=== PATIENT | female | born 1985 | race Caucasian/White ===

== ENCOUNTER 2016-04-01 16:23 | Emergency (ER) | payer SELFPAY ==
[2016-04-01] MEDS ORDERED: DIPH/PERTUSS(ACELL)/TETANUS VAC/PF 0.5 ML SYR (>=10YO) IM ONE (16:35)
[2016-04-01] MEDS ORDERED: OXYCODONE-ACETAMINOPHEN 5-325 MG TABLET PO ONE (16:36)
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
[2016-04-01] MEDS ORDERED: HYDROCODONE/ACETAMINOPHEN 5-325 MG 6 TAB/DSPK PO PRN (18:31)
[2016-04-01 19:07] VITALS: BP 132/80
== END 2016-04-01 19:06 | disposition home or self-care (01) ==
LOC: EEVIPCON 16:23 → ER 16:23
DX: S01.01XA Laceration without foreign body of scalp, initial encounter (principal); S20.212A Contusion of left front wall of thorax, initial encounter; S00.83XA Contusion of other part of head, initial encounter; R07.81 Pleurodynia; Z23 Encounter for immunization; Y04.2XXA Assault by strike against or bumped into by another person, initial encounter; Y92.009 Unspecified place in unspecified non-institutional (private) residence as the place of occurrence of the external cause; Z88.0 Allergy status to penicillin; Z87.442 Personal history of urinary calculi; Z90.49 Acquired absence of other specified parts of digestive tract
CPT/HCPCS: 70450; 70486; 72125; 90471; 90715; 99284

== ENCOUNTER 2016-09-08 18:02 | Emergency (ER) | payer SELFPAY ==
[2016-09-08] MEDS ORDERED: NORMAL SALINE 1000 ML 1,000 ML IV PRN (19:40)
[2016-09-08] MEDS ORDERED: KETOROLAC TROMETHAMINE INJ/PF 30 MG/1 ML SDV IV ONE (19:40)
[2016-09-08] MEDS ORDERED: ONDANSETRON HCL INJ/PF 4 MG/2 ML SDV IV ONE (19:40)
--- NOTE | 2016-09-08 19:41 | ER Document Report ---
ED Medical Screen (RME) - General Chief Complaint: Flank Pain Stated Complaint: RIGHT FLANK PAIN Time Seen by Provider: 09/08/16 19:40 Mode of Arrival: Ambulatory Information source: Patient TRAVEL OUTSIDE OF THE [place] IN LAST 30 DAYS: No - HPI Patient complains to provider of: Right flank pain Onset: This afternoon Notes: 09/08/16 19:41 Is a 30-year-old female with a history of multiple previous kidney stone, requiring stent placement in 2004, other than that she has been able to pass most of them on their own, presenting with right flank pain that started around 230 this afternoon, she denies dysuria or hematuria, no fever or chills, she reports nausea but no vomiting - Related Data Allergies/Adverse Reactions: penicillin V [Penicillin V] Allergy (Verified 01/01/16 08:38) Past Medical History Renal/ Medical History: Reports: Hx Kidney Stones. Denies: Hx Peritoneal Dialysis Psychiatric Medical History: Reports: Hx Depression Past Surgical History: Reports: Hx Cholecystectomy - Immunizations Hx Diphtheria, Pertussis, Tetanus Vaccination: Yes Physical Exam - Vital signs Vitals: Temp Pulse Resp BP Pulse Ox 98.1 F 82 16 126/83 H 98 09/08/16 18:17 09/08/16 18:17 09/08/16 18:17 09/08/16 18:17 09/08/16 18:17 Course - Vital Signs Vital signs: Temp Pulse Resp BP Pulse Ox 98.1 F 82 16 126/83 H 98 09/08/16 18:17 09/08/16 18:17 09/08/16 18:17 09/08/16 18:17 09/08/16 18:17
[2016-09-08 20:05] LABS: APPEARANCE,URINE SLIGHTLY-CLOUDY; BILIRUBIN,URINE NEGATIVE (NEGATIVE); GLUCOSE, URINE NEGATIVE (NEGATIVE); KETONES,URINE TRACE mg/dL (NEGATIVE); LEUKOCYTE ESTERASE,URINE NEGATIVE (NEGATIVE); NITRITE,URINE NEGATIVE (NEGATIVE); PROTEIN,URINE NEGATIVE (NEGATIVE); UROBILINOGEN,URINE NEGATIVE mg/dL (<2.0)
[2016-09-08 21:02] LABS: ABSOLUTE EOSINOPHILS # (AUTO) 0.1 10^3/uL (0.0-0.6); ABSOLUTE MONOCYTES (AUTO) 0.5 10^3/uL (0.1-1.4); ABSOLUTE NEUT (AUTO) 3.8 10^3/uL (1.7-8.2); BASOPHILS % (AUTO) 0.7 % (0-2); EOSINOPHILS % (AUTO) 0.8 % (0-6); HEMATOCRIT 39.4 % (36.0-47.0); HGB HCT DIFFERENCE -0.4; LYMPHOCYTES % (AUTO) 40.7 % (13-45); MEAN CORPUSCULAR HEMOGLOBIN 31.5 pg (27.0-33.4); MEAN CORPUSCULAR VOLUME 96 fl (80-97); MONOCYTES % (AUTO) 6.1 % (3-13); RED BLOOD COUNT 4.12 10^6/uL (3.72-5.28); RED CELL DISTRIBUTION WIDTH 14.1 % (11.5-14.0); SEGMENTED NEUTROPHILS % (AUTO) 51.7 % (42-78); WHITE BLOOD COUNT 7.4 10^3/uL (4.0-10.5)
[2016-09-08] MEDS ORDERED: LIDOCAINE 5% (700 MG) TRANSDERMAL ADH..PATCH TP ONE (21:15)
--- NOTE | 2016-09-08 21:20 | ER Document Report ---
ED General - General Chief Complaint: Flank Pain Stated Complaint: RIGHT FLANK PAIN Time Seen by Provider: 09/08/16 19:40 Mode of Arrival: Ambulatory Notes: Patient is a 30-year-old female with past medical history of recurrent nephrolithiases who presents with 12 hours of a constant, stabbing, aching pain to the right flank. States this feels somewhat similar when she had kidney stones in the past. She has not tried anything to improve her pain has not noted that anything seems to worsen the pain. Denies any associated hematuria, dysuria, focal abdominal pain, vaginal bleeding or discharge. She has not seen her primary care doctor regarding today's concerns. She denies any associated constitutional symptoms, vomiting or diarrhea. TRAVEL OUTSIDE OF THE [place] IN LAST 30 DAYS: No - Related Data Allergies/Adverse Reactions: penicillin V [Penicillin V] Allergy (Verified 01/01/16 08:38) Past Medical History - General Information source: Patient - Social History Smoking Status: Current Every Day Smoker Frequency of alcohol use: None Drug Abuse: None Lives with: Spouse/Significant other Family History: Reviewed & Not Pertinent Renal/ Medical History: Reports: Hx Kidney Stones. Denies: Hx Peritoneal Dialysis Psychiatric Medical History: Reports: Hx Depression Past Surgical History: Reports: Hx Cholecystectomy - Immunizations Hx Diphtheria, Pertussis, Tetanus Vaccination: Yes Review of Systems - Review of Systems Notes: Constitutional: Negative for fever. HENT: Negative for sore throat. Eyes: Negative for visual changes. Cardiovascular: Negative for chest pain. Respiratory: Negative for shortness of breath. Gastrointestinal: Negative for abdominal pain, vomiting or diarrhea. Genitourinary: Negative for dysuria. Musculoskeletal: Negative for back pain. Positive for right flank pain Skin: Negative for rash. Neurological: Negative for headaches, weakness or numbness. 10 point ROS negative except as marked above and in HPI. Physical Exam - Vital signs Vitals: Temp Pulse Resp BP Pulse Ox 98.1 F 82 16 126/83 H 98 09/08/16 18:17 09/08/16 18:17 09/08/16 18:17 09/08/16 18:17 09/08/16 18:17 Interpretation: Normal Notes: PHYSICAL EXAMINATION: GENERAL: Well-appearing, well-nourished and in no acute distress. HEAD: Atraumatic, normocephalic. EYES: Pupils equal round and reactive to light, extraocular movements intact, sclera anicteric, conjunctiva are normal. ENT: nares patent, oropharynx clear without exudates. Moist mucous membranes. NECK: Normal range of motion, supple without lymphadenopathy LUNGS: Breath sounds clear to auscultation bilaterally and equal. No wheezes rales or rhonchi. HEART: Regular rate and rhythm without murmurs ABDOMEN: Soft, nontender, normoactive bowel sounds. No guarding, no rebound. No masses appreciated. Mild right CVA tenderness to palpation EXTREMITIES: Normal range of motion, no pitting or edema. No cyanosis. NEUROLOGICAL: No focal neurological deficits. Moves all extremities spontaneously and on command. PSYCH: Normal mood, normal affect. SKIN: Warm, Dry, normal turgor, no rashes or lesions noted. Course - Re-evaluation Re-evalutation: 09/08/16 21:15 Patient presents with gradual onset right flank pain but is overall extremely well in appearance, no acute distress. States it feels like prior kidney stones although her overall clinical appearance is not suggestive of this diagnosis. Patient has had recurrent CT scans in the past and I do not believe that she requires an additional scan at this time to better clarify the diagnosis as there is no hydronephrosis on bedside ultrasound, no hematuria or evidence of infection on urinalysis. Abdominal exam is otherwise completely benign without any focal tenderness beyond the right flank tenderness on palpation. I do not suspect an acute pulmonary embolus as patient denies any dyspnea, pleuritic pain, she is PERC criteria negative. The exact cause of patient's pain at this time is unclear but could still be related to a possible acute kidney stone despite absence of hematuria or obvious hydronephrosis on bedside ultrasound. I have recommended ongoing ibuprofen, Tylenol, and have encouraged patient to follow-up with her primary care physician. At this time based on exam and history do not suspect acute biliary pathology, pancreatitis, bowel obstruction, mesenteric ischemia, acute appendicitis, ovarian torsion, tubo-ovarian abscess, or acute pyelonephritis. At this time will discharge with return precautions and follow-up recommendations. Verbal discharge instructions given a the bedside and opportunity for questions given. Medication warnings reviewed. Patient is in agreement with this plan and has verbalized understanding of return precautions and the need for primary care follow-up in the next 24-72 hours. - Vital Signs Vital signs: Temp Pulse Resp BP Pulse Ox 98.2 F 57 L 14 118/70 99 09/08/16 20:55 09/08/16 20:55 09/08/16 20:55 09/08/16 20:55 09/08/16 20:55 - Laboratory Result Diagrams: 09/08/16 20:15 09/08/16 20:15 Laboratory results interpreted by me: 09/08/16 09/08/16 09/08/16 18:15 20:15 20:15 RDW 14.1 H BUN 22 H AST 56 H Urine Ketones TRACE H Urine Ascorbic Acid 40 H Discharge - Discharge Clinical Impression: Right flank pain Condition: Good Disposition: HOME, SELF-CARE Additional Instructions: The exact cause of your flank pain today is unclear but does not immediately appear to be related to a kidney stone or a kidney infection. The remainder of your lab work is normal. Please follow-up with your primary care doctor in the next several days. For your pain: Take ibuprofen 600 mg and acetaminophen 1000 mg every 6 hours together as needed for pain. If this does not control your pain you may take 15 mg of oral morphine every 4 hours as needed. Please be very careful about using the oral morphine and only use this for severe pain. Return if you have worsening of your pain, persistent vomiting, pass out, or have any other symptoms that are worrisome to you. Prescriptions: Morphine Sulfate [Morphine Ir 15 mg Tablet] 15 mg PO Q4HP PRN #6 tablet PRN Reason: Forms: Return to Work
[2016-09-08 21:25] LABS: ALANINE AMINOTRANSFERASE 37 U/L (9-52); ALBUMIN 4.2 g/dL (3.5-5.0); ALKALINE PHOSPHATASE 78 U/L (38-126); ANION GAP 10 (5-19); ASPARTATE AMINO TRANSFERASE 56 U/L (14-36); BILIRUBIN,DIRECT 0.3 mg/dL (0.0-0.4); BILIRUBIN,TOTAL 0.5 mg/dL (0.2-1.3); BLOOD UREA NITROGEN 22 mg/dL (7-20); CALCIUM 9.1 mg/dL (8.4-10.2); CARBON DIOXIDE 28 mmol/L (22-30); CHLORIDE 103 mmol/L (98-107); CREATININE RESULT 0.87 mg/dL (0.52-1.25); GLUCOSE 99 mg/dL (75-110); LIPASE 130.9 U/L (23-300); POTASSIUM 3.6 mmol/L (3.6-5.0); SODIUM 140.6 mmol/L (137-145); TOTAL PROTEIN 7.5 g/dL (6.3-8.2)
[2016-09-08 21:27] VITALS: BP 118/70
== END 2016-09-08 21:35 | disposition home or self-care (01) ==
LOC: ER 18:02
DX: R10.9 Unspecified abdominal pain (principal); Z87.442 Personal history of urinary calculi; F17.200 Nicotine dependence, unspecified, uncomplicated; Z88.0 Allergy status to penicillin; Z90.49 Acquired absence of other specified parts of digestive tract
CPT/HCPCS: 99284; 96361; 96374; 96375; 36415; 87086; 83690; 84703; 85025; 87088; 80053; 81001; 87186; J1885; J2405; J7030

== ENCOUNTER 2016-12-17 17:19 | Emergency (ER) | payer SELFPAY ==
[2016-12-17 17:41] VITALS: BP 114/80
== END 2016-12-18 00:35 | disposition left against medical advice (07) ==
LOC: EEVIPCON 17:19 → ER 17:19
DX: Z53.21 Procedure and treatment not carried out due to patient leaving prior to being seen by health care provider (principal)

== ENCOUNTER 2016-12-23 08:06 | Emergency (ER) | payer SELFPAY ==
--- NOTE | 2016-12-23 10:13 | ER Document Report ---
ED General - General Chief Complaint: Vaginal Bleeding Stated Complaint: VAGINAL BLEEDING Time Seen by Provider: 12/23/16 09:44 Mode of Arrival: Ambulatory Information source: Patient Notes: 31-year-old female who had a Mirena and for 5 years presents with complaints of vaginal bleeding cramping. Patient is concerned of miscarriage denies any fevers or chills denies any large clots patient has had a miscarriage in the past and has received RhoGam in the past TRAVEL OUTSIDE OF THE [place] IN LAST 30 DAYS: No - HPI Onset: Yesterday Onset/Duration: Sudden Quality of pain: Cramping Severity: Mild Pain Level: 1 Associated symptoms: Other Exacerbated by: Denies Relieved by: Denies Similar symptoms previously: Yes Recently seen / treated by doctor: No - Related Data Allergies/Adverse Reactions: penicillin V [Penicillin V] Allergy (Verified 12/23/16 10:40) Past Medical History - Social History Smoking Status: Current Every Day Smoker Cigarette use (# per day): Yes Chew tobacco use (# tins/day): No Smoking Education Provided: No Family History: Reviewed & Not Pertinent Patient has suicidal ideation: No Renal/ Medical History: Reports: Hx Kidney Stones. Denies: Hx Peritoneal Dialysis Psychiatric Medical History: Reports: Hx Depression Past Surgical History: Reports: Hx Cholecystectomy, Hx Kidney (Renal Surgery) - stent placed - Immunizations Hx Diphtheria, Pertussis, Tetanus Vaccination: Yes Review of Systems - Review of Systems Notes: REVIEW OF SYSTEMS: CONSTITUTIONAL : Denies fever, chills, or sweats. Denies recent illness. EENT: Denies eye, ear, throat, or mouth pain or symptoms. Denies nasal or sinus congestion or discharge. Denies throat, tongue, or mouth swelling or difficulty swallowing. CARDIOVASCULAR: Denies chest pain. Denies palpitations or racing or irregular heart beat. Denies ankle edema. RESPIRATORY: Denies cough, cold, or chest congestion. Denies shortness of breath, difficulty breathing, or wheezing. GASTROINTESTINAL: Denies abdominal pain or distention. Denies nausea, vomiting , or diarrhea. Denies blood in vomitus, stools, or per rectum. Denies black, tarry stools. Denies constipation. GENITOURINARY: Denies difficulty urinating, painful urination, burning, frequency, blood in urine, or discharge. FEMALE GENITOURINARY: Admits to vaginal bleeding MUSCULOSKELETAL: Denies back or neck pain or stiffness. Denies joint pain or swelling. SKIN: Denies rash, lesions or sores. HEMATOLOGIC : Denies easy bruising or bleeding. LYMPHATIC: Denies swollen, enlarged glands. NEUROLOGICAL: Denies confusion or altered mental status. Denies passing out or loss of consciousness. Denies dizziness or lightheadedness. Denies headache. Denies weakness or paralysis or loss of use of either side. Denies problems with gait or speech. Denies sensory loss, numbness, or tingling. Denies seizures. PSYCHIATRIC: Denies anxiety or stress. Denies depression, suicidal ideation, or homicidal ideation. ALL OTHER SYSTEMS REVIEWED AND NEGATIVE. PHYSICAL EXAMINATION: GENERAL: Well-appearing, well-nourished and in no acute distress. HEAD: Atraumatic, normocephalic. EYES: Pupils equal round and reactive to light, extraocular movements intact, conjunctiva are normal. ENT: Nares patent, oropharynx clear without exudates. Moist mucous membranes. NECK: Normal range of motion, supple without lymphadenopathy LUNGS: Breath sounds clear to auscultation bilaterally and equal. No wheezes rales or rhonchi. HEART: Regular rate and rhythm without murmurs ABDOMEN: Soft, nontender, nondistended abdomen. No guarding, no rebound. No masses appreciated. Female : deferred Musculoskeletal: Normal range of motion, no pitting or edema. No cyanosis. NEUROLOGICAL: Cranial nerves grossly intact. Normal speech, normal gait. Normal sensory, motor exams PSYCH: Normal mood, normal affect. SKIN: Warm, Dry, normal turgor, no rashes or lesions noted. Dictation was performed using [employer] voice recognition software Physical Exam - Vital signs Vitals: Temp Pulse Resp BP Pulse Ox 98.6 F 67 16 110/70 99 12/23/16 08:35 12/23/16 08:35 12/23/16 08:35 12/23/16 08:35 12/23/16 08:35 Course - Re-evaluation Re-evalutation: 12/23/16 10:13 Lab work pending at this time, concerns for miscarriage noted and will check with serum hCG otherwise this may be a. Given that her Mirena has lasted greater than 5 years 12/23/16 11:22 Patient's hCG was negative lab work otherwise looks well. I believe she is having her menses Urine culture has been ordered given moderate white blood cells with no urinary symptoms After performing a Medical Screening Examination, I estimate there is LOW risk for ACUTE APPENDICITIS, BOWEL OBSTRUCTION, ACUTE CHOLECYSTITIS, PERFORATED DIVERTICULITIS, INCARCERATED HERNIA, PANCREATITIS, PELVIC INFLAMMATORY DISEASE, PERFORATED ULCER, ECTOPIC , or TUBO-OVARIAN ABSCESS, thus I consider the discharge disposition reasonable. Also, there is no evidence or peritonitis , sepsis, or toxicity. I have reevaluated this patient multiple times and no significant life threatening changes are noted. The patient and I have discussed the diagnosis and risks, and we agree with discharging home with close follow-up with the understanding that symptoms and presentations can change. We also discussed returning to the Emergency Department immediately if new or worsening symptoms occur. We have discussed the symptoms which are most concerning (e.g., bloody stool, fever, changing or worsening pain, vomiting) that necessitate immediate return. - Vital Signs Vital signs: Temp Pulse Resp BP Pulse Ox 98.6 F 67 16 110/70 99 12/23/16 08:35 12/23/16 08:35 12/23/16 08:35 12/23/16 08:35 12/23/16 08:35 - Laboratory Result Diagrams: 12/23/16 10:10 12/23/16 10:10 Laboratory results interpreted by me: 12/23/16 12/23/16 10:10 10:10 Chloride 109 H Urine Blood SMALL H Urine Urobilinogen 2.0 H Ur Leukocyte Esterase MODERATE H Discharge - Discharge Clinical Impression: Pelvic pain, Vaginal bleeding Condition: Stable Disposition: HOME, SELF-CARE Instructions: Pelvic Pain ([facility]) Prescriptions: Hydrocodone/Acetaminophen [[place] 5-325 mg Tablet] 1 tab PO Q6 #10 tablet Referrals: [facility] [Provider Group] - Follow up tomorrow
[2016-12-23 10:30] LABS: ABSOLUTE EOSINOPHILS # (AUTO) 0.2 10^3/uL (0.0-0.6); ABSOLUTE LYMPHOCYTES (AUTO) 1.9 10^3/uL (0.5-4.7); ABSOLUTE MONOCYTES (AUTO) 0.4 10^3/uL (0.1-1.4); ABSOLUTE NEUT (AUTO) 2.6 10^3/uL (1.7-8.2); BASOPHILS % (AUTO) 0.5 % (0-2); EOSINOPHILS % (AUTO) 3.4 % (0-6); HEMATOCRIT 36.2 % (36.0-47.0); HEMOGLOBIN 12.6 g/dL (12.0-15.5); HGB HCT DIFFERENCE 1.6; LYMPHOCYTES % (AUTO) 37.3 % (13-45); MEAN CORPUSCULAR HEMOGLOBIN 32.6 pg (27.0-33.4); MEAN CORPUSCULAR HGB CONC 34.8 g/dL (32.0-36.0); MEAN CORPUSCULAR VOLUME 94 fl (80-97); MONOCYTES % (AUTO) 8.2 % (3-13); RED BLOOD COUNT 3.86 10^6/uL (3.72-5.28); RED CELL DISTRIBUTION WIDTH 12.9 % (11.5-14.0); SEGMENTED NEUTROPHILS % (AUTO) 50.6 % (42-78); WHITE BLOOD COUNT 5.1 10^3/uL (4.0-10.5)
[2016-12-23 10:52] LABS: ALANINE AMINOTRANSFERASE 25 U/L (9-52); ALBUMIN 3.9 g/dL (3.5-5.0); ALKALINE PHOSPHATASE 96 U/L (38-126); ANION GAP 9 (5-19); ASPARTATE AMINO TRANSFERASE 19 U/L (14-36); BILIRUBIN,DIRECT 0.2 mg/dL (0.0-0.4); BILIRUBIN,TOTAL 0.2 mg/dL (0.2-1.3); BLOOD UREA NITROGEN 12 mg/dL (7-20); CALCIUM 9.7 mg/dL (8.4-10.2); CARBON DIOXIDE 27 mmol/L (22-30); CHLORIDE 109 mmol/L (98-107); CREATININE RESULT 0.72 mg/dL (0.52-1.25); GLUCOSE 92 mg/dL (75-110); POTASSIUM 3.9 mmol/L (3.6-5.0); SODIUM 144.5 mmol/L (137-145); TOTAL PROTEIN 6.5 g/dL (6.3-8.2)
[2016-12-23 11:00] LABS: AMORPHOUS SEDIMENT,URINE TRACE /HPF; APPEARANCE,URINE CLOUDY; BILIRUBIN,URINE NEGATIVE (NEGATIVE); GLUCOSE, URINE NEGATIVE (NEGATIVE); KETONES,URINE NEGATIVE (NEGATIVE); LEUKOCYTE ESTERASE,URINE MODERATE (NEGATIVE); NITRITE,URINE NEGATIVE (NEGATIVE); PROTEIN,URINE NEGATIVE (NEGATIVE); URINE SPECIFIC GRAVITY 1.027
[2016-12-23] MEDS ORDERED: HYDROCODONE/ACETAMINOPHEN 5-325 MG TABLET PO ONE (11:06)
[2016-12-23 12:01] VITALS: BP 127/73
== END 2016-12-23 11:35 | disposition home or self-care (01) ==
LOC: ER 08:06
DX: N93.9 Abnormal uterine and vaginal bleeding, unspecified (principal); R10.2 Pelvic and perineal pain; F17.210 Nicotine dependence, cigarettes, uncomplicated; Z87.59 Personal history of other complications of pregnancy, childbirth and the puerperium; Z88.0 Allergy status to penicillin; Z97.5 Presence of (intrauterine) contraceptive device
CPT/HCPCS: 36415; 80053; 81001; 84702; 85025; 87086; 99284

== ENCOUNTER 2017-02-04 14:49 | Emergency (ER) | payer SELFPAY ==
[2017-02-04 14:54] VITALS: BP 124/73
--- NOTE | 2017-02-04 16:20 | ER Document Report ---
ED GI/ - General Chief Complaint: Flank Pain Stated Complaint: RIGHT SIDE PAIN Time Seen by Provider: 02/04/17 16:19 TRAVEL OUTSIDE OF THE [place] IN LAST 30 DAYS: No - Related Data Allergies/Adverse Reactions: penicillin V [Penicillin V] Allergy (Verified 02/04/17 14:53) Past Medical History - Social History Family History: Reviewed & Not Pertinent Renal/ Medical History: Reports: Hx Kidney Stones. Denies: Hx Peritoneal Dialysis Psychiatric Medical History: Reports: Hx Depression Past Surgical History: Reports: Hx Cholecystectomy, Hx Kidney (Renal Surgery) - stent placed - Immunizations Hx Diphtheria, Pertussis, Tetanus Vaccination: Yes Physical Exam - Vital signs Vitals: Temp Pulse Resp BP Pulse Ox 98.5 F 71 14 124/73 97 02/04/17 14:53 02/04/17 14:53 02/04/17 14:53 02/04/17 14:53 02/04/17 14:53 Course - Vital Signs Vital signs: Temp Pulse Resp BP Pulse Ox 98.5 F 71 14 124/73 97 02/04/17 14:53 02/04/17 14:53 02/04/17 14:53 02/04/17 14:53 02/04/17 14:53
--- NOTE | 2017-02-04 16:25 | ER Document Report ---
HPI - HPI Onset: This afternoon Onset/Duration: Sudden Quality of pain: Throbbing Pain Level: 4 Context: Change to below 31-year-old female developed right lumbar low back pain while walking on the treadmill at the gym. No specific injury which she has had this pain before. There is no radiation or radiculopathy. No saddle anesthesia. No fever. No IV drug use. States it is a kidney stone. She has been seen in the emergency department with CT scans showed renal stones but no ureteral stones or hydronephrosis. The throbbing pain is worse when she moves she is unable to bend forward due to the pain and lateral side bends make it hurt. No urinary frequency dysuria or urgency. No hematuria. No vaginal discharge. Associated Symptoms: None Exacerbated by: Movement Relieved by: Denies Similar symptoms previously: Yes Recently seen / treated by doctor: No - ROS ROS below otherwise negative: Yes Systems Reviewed and Negative: Yes All other systems reviewed and negative - REPRODUCTIVE Reproductive: DENIES: : Past Medical History - General Information source: Patient - Social History Smoking Status: Current Every Day Smoker Frequency of alcohol use: None Drug Abuse: Marijuana Lives with: Family Family History: Reviewed & Not Pertinent Renal/ Medical History: Reports: Hx Kidney Stones. Denies: Hx Peritoneal Dialysis Psychiatric Medical History: Reports: Hx Depression Past Surgical History: Reports: Hx Cholecystectomy, Hx Kidney (Renal Surgery) - stent placed - Immunizations Hx Diphtheria, Pertussis, Tetanus Vaccination: Yes Vertical Provider Document - CONSTITUTIONAL Agree With Documented VS: Yes Exam Limitations: No Limitations General Appearance: No Apparent Distress Notes: Curled in a ball laying on the bed covered with blankets on her left side. - INFECTION CONTROL TRAVEL OUTSIDE OF THE [place] IN LAST 30 DAYS: No - HEENT HEENT: Normocephalic - NECK Neck: Supple - RESPIRATORY Respiratory: Breath Sounds Normal, No Respiratory Distress O2 Sat by Pulse Oximetry: 97 - CARDIOVASCULAR Cardiovascular: Regular Rate, Regular Rhythm - GI/ABDOMEN Gastrointestinal: Abdomen Soft, Abdomen Non-Tender - BACK Back: Normal Inspection Notes: tender L4 laterally right paraspinal muscle - MUSCULOSKELETAL/EXTREMETIES Musculoskeletal/Extremeties: MAEW, FROM, Tender - see above - NEURO Level of Consciousness: Awake, Alert, Appropriate Motor/Sensory: No Motor Deficit, No Sensory Deficit Deep Tendon Reflexes: 2+ - Bilateral ankle and patella Course - Re-evaluation Re-evalutation: 02/04/17 17:15 Urine is negative I will treat for musculoskeletal back pain. - Vital Signs Vital signs: Temp Pulse Resp BP Pulse Ox 98.5 F 71 14 124/73 97 02/04/17 14:53 02/04/17 14:53 02/04/17 14:53 02/04/17 14:53 02/04/17 14:53 Discharge - Discharge Clinical Impression: right low lumbar back pain Condition: Good Disposition: HOME, SELF-CARE Instructions: Acetaminophen, Anti-Inflammatory Medication ([facility]), Chiropractor, Muscle Relaxers ([facility]), Warm Packs ([facility]) Additional Instructions: warm compress see chiropractor, may help with the lumbar back pain to er if worse Prescriptions: Ibuprofen [Motrin 600 mg Tablet] 600 mg PO Q8HP PRN #30 tablet PRN Reason: Cyclobenzaprine HCl [Flexeril 10 Mg Tablet] 10 mg PO TIDP PRN #20 tablet PRN Reason: Referrals: ROBERT VALVERDE DC [CHIROPRACTOR] - Follow up as needed
[2017-02-04] MEDS ORDERED: IBUPROFEN 600 MG TABLET PO ONE (16:31)
[2017-02-04] MEDS ORDERED: ACETAMINOPHEN 325 MG TABLET PO ONE (16:31)
[2017-02-04 16:39] LABS: APPEARANCE,URINE SLIGHTLY-CLOUDY; BILIRUBIN,URINE NEGATIVE (NEGATIVE); GLUCOSE, URINE NEGATIVE (NEGATIVE); KETONES,URINE NEGATIVE (NEGATIVE); LEUKOCYTE ESTERASE,URINE NEGATIVE (NEGATIVE); NITRITE,URINE NEGATIVE (NEGATIVE); PROTEIN,URINE NEGATIVE (NEGATIVE); URINE SPECIFIC GRAVITY 1.016; UROBILINOGEN,URINE NEGATIVE mg/dL (<2.0)
== END 2017-02-04 18:00 | disposition home or self-care (01) ==
LOC: ER 14:49
DX: M54.5 Low back pain (principal); F17.200 Nicotine dependence, unspecified, uncomplicated
CPT/HCPCS: 81001; 81025; 87086; 87088; 99284

== ENCOUNTER 2017-05-23 14:38 | Emergency (ER) | payer SELFPAY ==
--- NOTE | 2017-05-23 16:10 | ER Document Report ---
ED Medical Screen (RME) - General Chief Complaint: Flu Symptoms Stated Complaint: FLU SYMPTOMS Time Seen by Provider: 05/23/17 16:08 Mode of Arrival: Ambulatory Information source: Patient Notes: This is a 31-year-old female with a history of kidney stones who presents to the emergency room with body aches, weakness, nonproductive cough, low-grade fevers for the past 2 days. Medications: None Allergies: Penicillin Immunizations: No flu vaccine Surgeries: Cholecystectomy, kidney stent TRAVEL OUTSIDE OF THE [place] IN LAST 30 DAYS: No - HPI Onset: Yesterday Onset/Duration: Gradual Quality of pain: Dull Severity: Moderate Pain Level: 2 Associated Symptoms: Cough (nonproductive), Fever, Nausea Exacerbated by: Denies Relieved by: Denies Similar symptoms previously: No Recently seen / treated by doctor: No - Related Data Smoking: Non-smoker Frequency of alcohol use: None Drug Abuse: None Allergies/Adverse Reactions: penicillin V [Penicillin V] Allergy (Verified 05/23/17 14:40) Past Medical History - General Information source: Patient - Social History Cigarette use (# per day): No Chew tobacco use (# tins/day): No Frequency of alcohol use: Occasional Drug Abuse: Marijuana Lives with: Family Family history: None - Medical History Medical History: Negative Renal/ Medical History: Reports: Hx Kidney Stones. Denies: Hx Peritoneal Dialysis Psychiatric Medical History: Reports: Hx Depression Past Surgical History: Reports: Hx Cholecystectomy, Hx Kidney (Renal Surgery) - stent placed - Immunizations Hx Diphtheria, Pertussis, Tetanus Vaccination: Yes Review of Systems - Review of Systems Constitutional: Chills, Fever EENT: No symptoms reported Cardiovascular: No symptoms reported Respiratory: See HPI Gastrointestinal: See HPI Genitourinary: No symptoms reported Female Genitourinary: No symptoms reported Musculoskeletal: No symptoms reported Skin: No symptoms reported Neurological/Psychological: No symptoms reported Physical Exam - Vital signs Vitals: Temp Pulse Resp BP Pulse Ox 98.6 F 67 16 121/82 98 05/23/17 15:02 05/23/17 15:02 05/23/17 15:02 05/23/17 15:02 05/23/17 15:02 Notes: Physical exam: GENERAL: A 1-year-old female, alert and oriented 3, no acute distress HEAD: Atraumatic, normocephalic. EYES: Pupils equal round and reactive to light, extraocular movements intact, sclera anicteric, conjunctiva are normal. ENT: TMs normal, nares patent, oropharynx mildly erythematous. Moist mucous membranes. NECK: Normal range of motion, supple without obvious mass or JVD. LUNGS: Breath sounds clear to auscultation bilaterally and equal. No wheezes rales or rhonchi. HEART: Regular rate and rhythm without murmurs, rubs or gallops. ABDOMEN: Soft, normoactive bowel sounds. No tenderness to palpation. No guarding, no rebound. No masses appreciated. EXTREMITIES: Normal range of motion, no pitting or edema. No clubbing or cyanosis. NEUROLOGICAL: Cranial nerves II through XII grossly intact. Normal speech, moving all extremities. PSYCH: Normal mood, normal affect. SKIN: Warm, Dry, normal turgor, no rashes or lesions noted. Course - Vital Signs Vital signs: Temp Pulse Resp BP Pulse Ox 98.5 F 70 18 120/88 H 99 05/23/17 18:08 05/23/17 18:08 05/23/17 18:08 05/23/17 18:08 05/23/17 18:08 - Diagnostic Test Radiology reviewed: Image reviewed, Reports reviewed - Chest x-ray showed no infiltrates Doctor's Discharge - Discharge Clinical Impression: Influenza-like illness Condition: Stable Disposition: HOME, SELF-CARE Additional Instructions: Your rapid strep test was negative today. Your chest x-ray was clear. You were initiated treatment for influenza. Rest, drink plenty of fluids, Tylenol and ibuprofen as needed. Return to the emergency room for worsening cough, shortness of breath or any concerns or getting worse. Prescriptions: Oseltamivir Phosphate [Tamiflu 75 mg Capsule] 75 mg PO BID #10 capsule Forms: Return to Work
--- NOTE | 2017-05-23 16:31 | RADIOLOGY REPORT (SQ) ---
EXAM DESCRIPTION: CHEST PA/LAT COMPLETED DATE/TIME: 05/23/2017 4:24 pm REASON FOR STUDY: cough COMPARISON: December 2015 EXAM PARAMETERS: NUMBER OF VIEWS: two views TECHNIQUE: Digital Frontal and Lateral radiographic views of the chest acquired. RADIATION DOSE: NA LIMITATIONS: none FINDINGS: LUNGS AND PLEURA: No opacities, masses or pneumothorax. No pleural effusion. MEDIASTINUM AND HILAR STRUCTURES: No masses or contour abnormalities. HEART AND VASCULAR STRUCTURES: Heart normal size. No evidence for failure. BONES: No acute findings. HARDWARE: None in the chest. OTHER: No other significant finding. IMPRESSION: NO SIGNIFICANT RADIOGRAPHIC FINDING IN THE CHEST. TECHNICAL DOCUMENTATION: JOB ID: [id number] [employer]- All Rights Reserved Reading location - IP/workstation name: [facility]
[2017-05-23] MEDS ORDERED: OSELTAMIVIR PHOSPHATE 75 MG CAPSULE PO ONE (17:57)
[2017-05-23 18:10] VITALS: BP 120/88
== END 2017-05-23 18:09 | disposition home or self-care (01) ==
LOC: ER 14:38
DX: J11.1 Influenza due to unidentified influenza virus with other respiratory manifestations (principal); M79.1 Myalgia; R53.1 Weakness; R50.9 Fever, unspecified; Z87.442 Personal history of urinary calculi; Z88.0 Allergy status to penicillin; Z90.49 Acquired absence of other specified parts of digestive tract
CPT/HCPCS: 99284; 87070; 87880; 71046; J3490

== ENCOUNTER 2017-06-24 16:19 | Emergency (ER) | payer SELFPAY ==
--- NOTE | 2017-06-24 17:51 | ER Document Report ---
HPI - HPI Pain Level: 1 Notes: Patient is a 31-year-old female no significant past medical history who presents to the ED requesting a work note she had to miss work today. Patient states that earlier this afternoon she had episodes of nausea and vomiting which have since resolved. Patient states that her work requires her to get a work note and wanted her to come the emergency department for it. She has no other concerns or complaints at this time. She has been able to eat and drink without difficulty since then. She is urinating normally and having normal bowel movements. Patient denies any possibility of at this time and does not want any tests performed. No other concerns or complaints. Denies any headache, fever, URI, sore throat, chest pain, palpitations, syncope, cough , shortness of breath, wheeze, dyspnea, current abdominal pain, current nausea/ vomiting/diarrhea, urinary retention, dysuria, hematuria, back pain, loss of control of bowel or bladder, numbness/tingling, saddle anesthesia, muscle paralysis/weakness, or rash. - ROS Systems Reviewed and Negative: Yes All other systems reviewed and negative - REPRODUCTIVE Reproductive: DENIES: : Past Medical History - Social History Smoking Status: Never Smoker Family History: Reviewed & Not Pertinent Renal/ Medical History: Reports: Hx Kidney Stones. Denies: Hx Peritoneal Dialysis Psychiatric Medical History: Reports: Hx Depression Past Surgical History: Reports: Hx Cholecystectomy, Hx Kidney (Renal Surgery) - stent placed - Immunizations Hx Diphtheria, Pertussis, Tetanus Vaccination: Yes Vertical Provider Document - CONSTITUTIONAL Agree With Documented VS: Yes Notes: PHYSICAL EXAMINATION: GENERAL: Well-appearing, well-nourished and in no acute distress. LUNGS: Breath sounds clear to auscultation bilaterally and equal. No wheezes rales or rhonchi. HEART: Regular rate and rhythm without murmurs, rubs, gallops. ABDOMEN: Soft, nontender, nondistended abdomen. No guarding, no rebound. No masses appreciated. Normal bowel sounds present. No CVA tenderness bilaterally. Extremities: No cyanosis, clubbing, or edema b/l. Peripheral pulses 2+. Capillary refill less than 3 seconds. NEUROLOGICAL: Normal speech, normal gait. Normal sensory, motor exams PSYCH: Normal mood, normal affect. SKIN: Warm, Dry, normal turgor, no rashes or lesions noted. - INFECTION CONTROL TRAVEL OUTSIDE OF THE [place] IN LAST 30 DAYS: No Course - Re-evaluation Re-evalutation: 06/24/17 18:53 Patient is an afebrile, well-hydrated, 31-year-old female who presents to the ED with resolved nausea/vomiting (work note visit), and worried well visit. Vitals are acceptable. PE is otherwise unremarkable. Patient's abdomen was soft and nontender. Patient declined any lab testing today. Low suspicion for any acute abdomen at this time based on patient's presentation and physical exam. Patient is tolerating p.o. without any difficulties. Advised recheck with PCM in 3-5 days. Return to the ED with any worsening/concerning symptoms otherwise as reviewed discharge. Work note was provided. Patient is in agreement. - Vital Signs Vital signs: Temp Pulse Resp BP Pulse Ox 98.9 F 81 14 147/95 H 97 06/24/17 16:22 06/24/17 16:22 06/24/17 16:22 06/24/17 16:22 06/24/17 16:22 Discharge - Discharge Clinical Impression: Worried well Condition: Stable Disposition: HOME, SELF-CARE Additional Instructions: Maintain adequate fluid and food intake [place] diet ([employer] Bananas, rice, apples, toast, etc Zofran as needed tylenol if needed Monitor for any worsening symptoms Make sure you are staying hydrated enough to urinate and have normal BM's Recheck with your PCM in 3-5 days Consider consult with Gastroenterology for ongoing/worsening symptoms Return to the ED with any worsening symptoms and/or development of fever, headache, chest pain, palpitations, syncope, shortness of breath, trouble breathing, abdominal pain, n/v/d, blood in stool/urine, weakness, or other worsening symptoms that are concerning to you. Forms: Elevated Blood Pressure, Return to Work Referrals: ALEX PETERSON MD [ACTIVE STAFF] - Follow up as needed
[2017-06-24 18:34] VITALS: BP 136/98
== END 2017-06-24 18:37 | disposition home or self-care (01) ==
LOC: ER 16:19
DX: Z71.1 Person with feared health complaint in whom no diagnosis is made (principal); R11.2 Nausea with vomiting, unspecified
CPT/HCPCS: 99283

== ENCOUNTER 2017-10-25 18:42 | Emergency (ER) | payer SELFPAY ==
[2017-10-25 18:46] VITALS: BP 121/87
--- NOTE | 2017-10-25 19:25 | ER Document Report ---
ED General - General Chief Complaint: Headache Stated Complaint: HEAD INJURY Time Seen by Provider: 10/25/17 19:02 Notes: 32-year-old female patient presents 24 hours post falling forward. Hit the upper lip area. Did not lose consciousness. Did not have any other injuries. Feels dazed and confused today. Had some nausea but this has since resolved. Does have a headache but not severe. Denies any weakness on upper lower extremities. Denies any slurred speech. Denies any blurred vision or double vision. TRAVEL OUTSIDE OF THE [place] IN LAST 30 DAYS: No - HPI Onset: Yesterday Onset/Duration: Sudden Quality of pain: Achy Severity: Mild - Related Data Allergies/Adverse Reactions: penicillin V [Penicillin V] Allergy (Verified 10/25/17 18:43) Past Medical History - General Information source: Patient - Social History Smoking Status: Former Smoker Chew tobacco use (# tins/day): No Frequency of alcohol use: Heavy Drug Abuse: None Lives with: Alone Family History: Reviewed & Not Pertinent Patient has suicidal ideation: No Patient has homicidal ideation: No Renal/ Medical History: Reports: Hx Kidney Stones. Denies: Hx Peritoneal Dialysis Psychiatric Medical History: Reports: Hx Depression Past Surgical History: Reports: Hx Cholecystectomy, Hx Kidney (Renal Surgery) - stent placed - Immunizations Hx Diphtheria, Pertussis, Tetanus Vaccination: Yes Review of Systems - Review of Systems Constitutional: denies: Fever, Malaise, Weakness EENT: denies: Eye pain, Blurred vision, Double vision, Difficulty swallowing, Throat swelling Cardiovascular: Lightheaded. denies: Chest pain, Palpitations, Heart racing, Syncope, Dizziness Respiratory: denies: Cough, Hurts to breathe, Short of breath, Wheezing Gastrointestinal: Nausea. denies: Abdominal pain, Diarrhea, Vomiting Musculoskeletal: denies: Back pain, Joint pain, Muscle pain, Neck pain Neurological/Psychological: Headaches. denies: Confusion, Sensory change, Weakness, Paralysis, Lost consciousness, Numbness Physical Exam - Vital signs Vitals: Temp Pulse Resp BP Pulse Ox 99.1 F 63 18 121/87 H 98 10/25/17 18:45 10/25/17 18:45 10/25/17 18:45 10/25/17 18:45 10/25/17 18:45 Interpretation: Normal - General General appearance: Appears well, Alert - HEENT Head: Normocephalic, Atraumatic Eyes: Normal Pupils: PERRL Fundascopic: Normal Ears: Normal Tympanic membrane: Normal. No: Hemotympanum Mouth/Lips: Normal Mucous membranes: Normal Pharynx: Normal Neck: Normal, Supple - Respiratory Respiratory status: No respiratory distress Chest status: Nontender Breath sounds: Normal Chest palpation: Normal - Cardiovascular Rhythm: Regular Heart sounds: Normal auscultation Murmur: No - Abdominal Inspection: Normal Distension: No distension Bowel sounds: Normal Tenderness: Nontender Organomegaly: No organomegaly - Back Back: Normal, Nontender - Extremities General upper extremity: Normal inspection, Nontender, Normal color, Normal ROM , Normal temperature General lower extremity: Normal inspection, Nontender, Normal color, Normal ROM , Normal temperature, Normal weight bearing. No: Rosita's sign - Neurological Neuro grossly intact: Yes Cognition: Normal Orientation: AAOx4 Jerry Coma Scale Eye Opening: Spontaneous Jerry Coma Scale Verbal: Oriented [place] Coma Scale Motor: Obeys Commands [place] Coma Scale Total: 15 Speech: Normal Cranial nerves: Normal Cerebellar coordination: Normal Motor strength normal: LUE, RUE, LLE, RLE Additional motor exam normals: Equal medical assistant cardiology. No: Pronator drift Sensory: Normal - Psychological Associated symptoms: Normal affect, Normal mood - Skin Skin Temperature: Warm Skin Moisture: Dry Skin Color: Normal Course - Re-evaluation Re-evalutation: 10/25/17 19:27 Long discussion had regarding closed head injury. At this time I did not feel the patient needs a CT scan of her head. Explained to her that she has no significant warning signs with regards to closed head injuries and this is been almost 24 hours since the injury. Advised her that if she develops any worsening headache, neurological symptoms, uncontrolled vomiting or other concerns to please return. - Vital Signs Vital signs: Temp Pulse Resp BP Pulse Ox 99.1 F 63 18 121/87 H 98 10/25/17 18:45 10/25/17 18:45 10/25/17 18:45 10/25/17 18:45 10/25/17 18:45 Discharge - Discharge Clinical Impression: Closed head injury with concussion Qualifiers: Encounter type: initial encounter Loss of consciousness presence/duration: without LOC Qualified Code(s): S06.0X0A - Concussion without loss of consciousness, initial encounter Condition: Good Disposition: HOME, SELF-CARE Instructions: Head Injury Precautions ([facility]), Post-Concussion Syndrome ([facility]) Forms: Return to Work
== END 2017-10-25 19:25 | disposition home or self-care (01) ==
LOC: ER 18:42
DX: S06.0X0A Concussion without loss of consciousness, initial encounter (principal); W19.XXXA Unspecified fall, initial encounter; W22.03XA Walked into furniture, initial encounter; Y93.89 Activity, other specified; Y92.009 Unspecified place in unspecified non-institutional (private) residence as the place of occurrence of the external cause; Z87.891 Personal history of nicotine dependence; Z88.0 Allergy status to penicillin; R42 Dizziness and giddiness; R41.0 Disorientation, unspecified; R11.0 Nausea
CPT/HCPCS: 99284

== ENCOUNTER 2017-11-13 23:05 | Emergency (ER) | payer SELFPAY ==
--- NOTE | 2017-11-14 01:44 | ER Document Report ---
ED Headache - General Chief Complaint: Headache Stated Complaint: HEADACHE Time Seen by Provider: 11/14/17 01:04 Notes: Patient is a 32 year old female without chronic medical problems who presents with intermittent headache, dizziness and lightheadedness. She states that the symptoms have been intermittent since she fell and struck her face earlier this month after she which she was seen in the emergency department. She states that overall she has been doing quite well but she overexerted herself in the gym 2 days ago and was therefore unable to go to work yesterday. She states that today she feels fine with the exception of a mild, throbbing, bitemporal headache which is similar to the headache that has has been present intermittently since she fell and hit her face. She states that her work requires a work note which is her primary reason for visiting the emergency department today. She denies any focal weakness, numbness, vomiting, difficulty ambulating or confusion. TRAVEL OUTSIDE OF THE [place] IN LAST 30 DAYS: No - Related Data Allergies/Adverse Reactions: penicillin V [Penicillin V] Allergy (Verified 10/25/17 18:43) Past Medical History - General Information source: Patient - Social History Smoking Status: Current Some Day Smoker Chew tobacco use (# tins/day): No Frequency of alcohol use: None Drug Abuse: None Family History: Reviewed & Not Pertinent Patient has suicidal ideation: No Patient has homicidal ideation: No Renal/ Medical History: Reports: Hx Kidney Stones. Denies: Hx Peritoneal Dialysis Psychiatric Medical History: Reports: Hx Depression Past Surgical History: Reports: Hx Cholecystectomy, Hx Kidney (Renal Surgery) - stent placed - Immunizations Hx Diphtheria, Pertussis, Tetanus Vaccination: Yes Review of Systems - Review of Systems Notes: Constitutional: Negative for fever. HENT: Negative for sore throat. Eyes: Negative for visual changes. Cardiovascular: Negative for chest pain. Respiratory: Negative for shortness of breath. Gastrointestinal: Negative for abdominal pain, vomiting or diarrhea. Genitourinary: Negative for dysuria. Musculoskeletal: Negative for back pain. Skin: Negative for rash. Neurological: Positive for headaches 10 point ROS negative except as marked above and in HPI. Physical Exam - Vital signs Vitals: Temp Pulse Resp BP Pulse Ox 98.7 F 79 16 122/85 98 11/13/17 23:05 11/13/17 23:05 11/13/17 23:05 11/13/17 23:05 11/13/17 23:05 Interpretation: Normal Notes: PHYSICAL EXAMINATION: GENERAL: Well-appearing, well-nourished and in no acute distress. HEAD: Atraumatic, normocephalic. EYES: Pupils equal round and reactive to light, extraocular movements intact, sclera anicteric, conjunctiva are normal. ENT: nares patent, oropharynx clear without exudates. Moist mucous membranes. NECK: Normal range of motion, supple without lymphadenopathy LUNGS: Breath sounds clear to auscultation bilaterally and equal. No wheezes rales or rhonchi. HEART: Regular rate and rhythm without murmurs ABDOMEN: Soft, nontender, normoactive bowel sounds. No guarding, no rebound. No masses appreciated. EXTREMITIES: Normal range of motion, no pitting or edema. No cyanosis. NEUROLOGICAL: Face symmetric. Tongue protrudes midline. Extraocular motions intact. Pupils are 2 mm and equally reactive. Normal speech, normal gait. 5 out of 5 strength in both the distal and proximal upper and lower extremities bilaterally. Sensation is grossly intact throughout. Finger to nose testing normal. Pronator drift normal. PSYCH: Normal mood, normal affect. SKIN: Warm, Dry, normal turgor, no rashes or lesions noted. Course - Re-evaluation Re-evalutation: 11/14/17 01:41 Patient presents with intermittent headache, dizziness, occasional lightheadedness after striking her head approximately 3 weeks ago. She states that otherwise she had been doing quite well although she overexerted herself at the gym yesterday and then was unable to go to work due to these symptoms. She states that her work requires a work note and that is primarily the reason she is here in the emergency department. In regards to her current headache: Headache was not maximal in onset, patient has no focal neurologic deficits, no nuchal rigidity, vital signs within normal limits, no papilledema, and patient is overall well in appearance. Based on clinical history and examination I do not suspect an acute subarachnoid hemorrhage, dural venous sinus thrombosis, acute meningitis, or intercranial mass. Given my low clinical suspicion for any acute life-threatening etiology, I do not feel advanced neuro imaging or laboratory testing is indicated at this time. Patient is [place] head CT criteria negative initial physician was correct and not imaging the patient's head. The patient likewise agrees stating that the only reason she is really here is for a work note. At this time will discharge with return precautions and follow-up recommendations. Verbal discharge instructions given a the bedside and opportunity for questions given. Medication warnings reviewed. Patient is in agreement with this plan and has verbalized understanding of return precautions and the need for primary care follow-up in the next 24-72 hours. - Vital Signs Vital signs: Temp Pulse Resp BP Pulse Ox 98.5 F 82 20 118/70 99 11/14/17 02:11 11/14/17 02:11 11/14/17 02:11 11/14/17 02:11 11/14/17 02:11 Discharge - Discharge Clinical Impression: Concussion Qualifiers: Encounter type: initial encounter Loss of consciousness presence/duration: without LOC Qualified Code(s): S06.0X0A - Concussion without loss of consciousness, initial encounter Headache Qualifiers: Headache type: unspecified Headache chronicity pattern: unspecified pattern Intractability: not intractable Qualified Code(s): R51 - Headache Condition: Good Disposition: HOME, SELF-CARE Additional Instructions: You have likely sustained a contusion (bruise) to your head. Symptoms to expect from a concussion include nausea, mild to moderate headache, difficulty concentrating or sleeping, and mild lightheadedness. These symptoms should improve over the next few days to weeks. Return to the emergency department or follow-up with your primary care doctor if your symptoms are not improving over this time. Signs of a more serious head injury include vomiting, severe headache, excessive sleepiness or confusion, and weakness or numbness in your face, arms or legs. Return immediately to the Emergency Department if you experience any of these more concerning symptoms. Rest, avoid strenuous physical or mental activity, and avoid activities that could potentially result in another head injury until all your symptoms from this head injury are completely resolved for at least 2-3 weeks. If you participate in sports, get cleared by your doctor or labor trainer before returning to play. You may take ibuprofen or acetaminophen over the counter according to label instructions for mild headache or scalp soreness. Forms: Special Work Note, Return to Work
[2017-11-14 02:12] VITALS: BP 118/70
== END 2017-11-14 02:00 | disposition home or self-care (01) ==
LOC: ER 23:05
DX: S06.0X0A Concussion without loss of consciousness, initial encounter (principal); R51 Headache; R42 Dizziness and giddiness; W19.XXXA Unspecified fall, initial encounter; F17.200 Nicotine dependence, unspecified, uncomplicated; Z88.0 Allergy status to penicillin
CPT/HCPCS: 99283

== ENCOUNTER 2018-03-17 18:37 | Emergency (ER) | payer SELFPAY ==
--- NOTE | 2018-03-17 19:11 | ER Document Report ---
ED Medical Screen (RME) - General Chief Complaint: Chest Tightness Stated Complaint: CHEST TIGHTNESS Time Seen by Provider: 03/17/18 18:55 TRAVEL OUTSIDE OF THE [place] IN LAST 30 DAYS: No - Related Data Allergies/Adverse Reactions: penicillin V [Penicillin V] Allergy (Verified 03/17/18 18:38) Past Medical History - Social History Family history: None Renal/ Medical History: Reports: Hx Kidney Stones. Denies: Hx Peritoneal Dialysis Psychiatric Medical History: Reports: Hx Depression Past Surgical History: Reports: Hx Cholecystectomy, Hx Kidney (Renal Surgery) - stent placed - Immunizations Hx Diphtheria, Pertussis, Tetanus Vaccination: Yes Physical Exam - Vital signs Vitals: Temp Pulse Resp BP Pulse Ox 98.6 F 102 H 16 142/96 H 99 03/17/18 18:51 03/17/18 18:51 03/17/18 18:51 03/17/18 18:51 03/17/18 18:51 Course - Re-evaluation Re-evalutation: 03/17/18 19:10 32-year-old female that presents for evaluation of chest tightness sensation of shortness of breath which she attributes to her anxiety was concerned that she might be "having a stroke or something like that". We will start workup through here including EKG and cardiac markers. Has seen and performed a rapid medical screening examination. - Vital Signs Vital signs: Temp Pulse Resp BP Pulse Ox 98.6 F 102 H 16 142/96 H 99 03/17/18 18:51 03/17/18 18:51 03/17/18 18:51 03/17/18 18:51 03/17/18 18:51
[2018-03-17 19:21] LABS: ABSOLUTE BASOPHILS # (AUTO) 0.1 10^3/uL (0.0-0.2); ABSOLUTE LYMPHOCYTES (AUTO) 1.7 10^3/uL (0.5-4.7); ABSOLUTE MONOCYTES (AUTO) 0.7 10^3/uL (0.1-1.4); ABSOLUTE NEUT (AUTO) 10.5 10^3/uL (1.7-8.2); BASOPHILS % (AUTO) 0.5 % (0-2); EOSINOPHILS % (AUTO) 0.1 % (0-6); HEMATOCRIT 39.6 % (36.0-47.0); HEMOGLOBIN 13.5 g/dL (12.0-15.5); LYMPHOCYTES % (AUTO) 13.1 % (13-45); MEAN CORPUSCULAR VOLUME 94 fl (80-97); MONOCYTES % (AUTO) 5.5 % (3-13); PLATELET COUNT 210 10^3/uL (150-450); RED BLOOD COUNT 4.21 10^6/uL (3.72-5.28); RED CELL DISTRIBUTION WIDTH 14.3 % (11.5-14.0); SEGMENTED NEUTROPHILS % (AUTO) 80.8 % (42-78); TOTAL CELLS COUNTED % (AUTO) 100 %
--- NOTE | 2018-03-17 19:35 | RADIOLOGY REPORT (SQ) ---
EXAM DESCRIPTION: CHEST SINGLE VIEW COMPLETED DATE/TIME: 03/17/2018 7:20 pm REASON FOR STUDY: chest tightness COMPARISON: 05/23/2017 EXAM PARAMETERS: NUMBER OF VIEWS: One view. TECHNIQUE: Single frontal radiographic view of the chest acquired. RADIATION DOSE: NA LIMITATIONS: None. FINDINGS: LUNGS AND PLEURA: No opacities, masses or pneumothorax. No pleural effusion. MEDIASTINUM AND HILAR STRUCTURES: No masses. Contour normal. HEART AND VASCULAR STRUCTURES: Heart normal in size. Normal vasculature. BONES: No acute findings. HARDWARE: None in the chest. OTHER: No other significant finding. IMPRESSION: NO ACUTE RADIOGRAPHIC FINDING IN THE CHEST. TECHNICAL DOCUMENTATION: JOB ID: [id number] [employer]- All Rights Reserved Reading location - IP/workstation name: [email or web address]
[2018-03-17 19:38] LABS: ALANINE AMINOTRANSFERASE 47 U/L (9-52); ALBUMIN 4.6 g/dL (3.5-5.0); ALKALINE PHOSPHATASE 75 U/L (38-126); ANION GAP 9 (5-19); ASPARTATE AMINO TRANSFERASE 49 U/L (14-36); BILIRUBIN,DIRECT 0.2 mg/dL (0.0-0.4); BILIRUBIN,TOTAL 0.3 mg/dL (0.2-1.3); BLOOD UREA NITROGEN 14 mg/dL (7-20); CALCIUM 9.5 mg/dL (8.4-10.2); CARBON DIOXIDE 28 mmol/L (22-30); CHLORIDE 103 mmol/L (98-107); GLUCOSE 102 mg/dL (75-110); POTASSIUM 4.1 mmol/L (3.6-5.0); SODIUM 139.9 mmol/L (137-145); TOTAL PROTEIN 7.4 g/dL (6.3-8.2)
[2018-03-17 20:55] LABS: APPEARANCE,URINE CLEAR; BILIRUBIN,URINE NEGATIVE (NEGATIVE); COLOR,URINE STRAW; GLUCOSE, URINE NEGATIVE (NEGATIVE); KETONES,URINE NEGATIVE (NEGATIVE); LEUKOCYTE ESTERASE,URINE NEGATIVE (NEGATIVE); NITRITE,URINE NEGATIVE (NEGATIVE); PROTEIN,URINE NEGATIVE (NEGATIVE); URINE SPECIFIC GRAVITY 1.004; UROBILINOGEN,URINE NEGATIVE mg/dL (<2.0)
[2018-03-17 20:59] LABS: URINE AMPHETAMINES SCREEN NEGATIVE; URINE BARBITURATES SCREEN NEGATIVE; URINE BENZODIAZEPINES SCREEN NEGATIVE; URINE COCAINE SCREEN NEGATIVE; URINE MARIJUANA (THC) SCREEN NEGATIVE; URINE METHADONE SCREEN NEGATIVE; URINE PHENCYCLIDINE SCREEN NEGATIVE
[2018-03-17 21:24] LABS: ACETAMINOPHEN < 10 ug/mL (10-30); ALCOHOL < 10 mg/dL (NONE DETECTED); SALICYLATE < 1.0 mg/dL (2.0-20.0)
[2018-03-17] MEDS ORDERED: DIPHENHYDRAMINE HCL 50 MG CAPSULE PO ONE (21:32)
--- NOTE | 2018-03-18 | EKG REPORT ---
SEVERITY:- BORDERLINE ECG - SINUS RHYTHM BORDERLINE RIGHT AXIS DEVIATION BORDERLINE PROLONGED QT INTERVAL : Confirmed by: Cleopatra Gaspar 17-Mar-2018 23:59:37
--- NOTE | 2018-03-18 05:53 | ER Document Report ---
Addendum entered and electronically signed by GALI VELEZ LCSWA 03/18/18 10:25: Discharge - Discharge Clinical Impression: Anxiety Depression Qualifiers: Depression Type: unspecified Qualified Code(s): F32.9 - Major depressive disorder, single episode, unspecified Condition: Stable Disposition: HOME, SELF-CARE Additional Instructions: You have been evaluated both medical and behavioral health teams have been deemed appropriate for discharge. You have been provided prescription for Prozac 20 mg daily; please take as directed. You have provided a local resource list of area providers including mobile crisis contact information. Please follow-up with your outpatient mental health provider of your choice within 3-5 days. DEPRESSION: Your evaluation reveals that you have mental depression. While symptoms may be vague, they often include disturbance of sleep, fatigue, loss of appetite, and general loss of interest in life. While depression may be a side effect of drugs, or a reaction to a major change in your life, many cases have no known cause. If depression is acute, and related to a major loss in your life, you can expect it to clear completely with time. If you have been depressed a long time, are prone to repeated bouts of depression or low mood, or have been thinking of suicide, get help. Depression can be treated with anti-depressant medication and counselling. Long-term depression will often take a few weeks to clear, even with appropriate medication. Follow-up care is important. SUICIDAL IDEATION: Suicidal ideation is a common medical term for thoughts about suicide, which may be as detailed as a formulated plan, without the suicidal act itself. Although most people who undergo suicidal ideation do not commit suicide, some go on to make suicide attempts. The range of suicidal ideation varies greatly from fleeting to detailed planning, role playing, and unsuccessful attempts. While thoughts about suicide are common, most people do not carry out serious actions to commit suicide. Based upon your evaluation and discussion with you, we do not believe you are currently at risk to act upon your thoughts of suicide. You have agreed to return to the Emergency Department, at any time, if you feel inclined to act upon your suicidal thoughts. FOLLOW-UP CARE: If you have been referred to a physician for follow-up care, call the physicians office for an appointment as you were instructed or within the next two days. If you experience worsening or a significant change in your symptoms, notify the physician immediately or return to the Emergency Department at any time for re-evaluation. Anxiety The physician feels that some of your health problems are being caused by anxiety. Anxiety affects your health in many ways. Anxiety alone can cause palpitations, sweats, chest pains, abdominal pains, shortness of breath, and headaches. It contributes to ulcer disease, high blood pressure, irritable bowel syndrome, and has been shown to cause flare-ups of many other diseases. Anxiety is not a simple disorder to treat. If the anxiety is due to recent life stresses, you may simply need time to "work through" the changes. If the anxiety is due to an underlying unhappiness with yourself or due to psychiatric disturbance, professional help will be needed. Your physician can refer you for further help if needed. Anti-anxiety medication is occasionally given if the stress is acute or if you are having trouble sleeping. Chronic or frequent use of these medications is not a good idea because the body becomes reliant on it, preventing you from dealing with life's normal stresses. Referrals: [facility] [Outside] - Follow up as needed Original Note: ED General - General TRAVEL OUTSIDE OF THE [place] IN LAST 30 DAYS: No <JOSE BRINK - Last Filed: 03/18/18 07:12> <GALI VELEZ - Last Filed: 03/18/18 10:24> <JAMES SAMUELS - Last Filed: 03/18/18 10:33> - General Chief Complaint: Chest Tightness Stated Complaint: CHEST TIGHTNESS Time Seen by Provider: 03/17/18 18:55 Notes: Patient is a 32-year-old female presents to the emergency department complaining of generalized anxiety. Patient states she has been under a lot of stress lately and has been noticing that her heart has been racing and tonight she felt like her chest was tight. Patient states since she has been in the emergency room the chest tightness has eased off but she started crying when I enter the room. Patient states "I do not want to live anymore, I cannot do it anymore." Patient is also stating "I am nuts" and she is also saying that people are "out to get me." Patient does have a GCS of 15 at this time and states she "needs help." Patient is denying HI, auditory or visual hallucinations. Past medical history: Depression, anxiety Medications: Saulsbury's wort Allergies: Penicillin (JOSE BRINK) - Related Data Allergies/Adverse Reactions: penicillin V [Penicillin V] Allergy (Verified 03/17/18 18:38) Past Medical History - General Information source: Patient - Social History Smoking Status: Former Smoker Family History: Reviewed & Not Pertinent Patient has suicidal ideation: No Patient has homicidal ideation: No Renal/ Medical History: Reports: Hx Kidney Stones. Denies: Hx Peritoneal Dialysis Psychiatric Medical History: Reports: Hx Depression Past Surgical History: Reports: Hx Cholecystectomy, Hx Kidney (Renal Surgery) - stent placed - Immunizations Hx Diphtheria, Pertussis, Tetanus Vaccination: Yes <JOSE BRINK - Last Filed: 03/18/18 07:12> Review of Systems - Review of Systems Constitutional: No symptoms reported EENT: No symptoms reported Cardiovascular: See HPI Respiratory: See HPI Gastrointestinal: No symptoms reported Genitourinary: No symptoms reported Female Genitourinary: No symptoms reported Musculoskeletal: No symptoms reported Skin: No symptoms reported Hematologic/Lymphatic: No symptoms reported Neurological/Psychological: See HPI <JOSE BRINK - Last Filed: 03/18/18 07:12> Physical Exam <JOSE BRINK - Last Filed: 03/18/18 07:12> - Vital signs Vitals: Temp Pulse Resp BP Pulse Ox 98.6 F 102 H 16 142/96 H 99 03/17/18 18:51 03/17/18 18:51 03/17/18 18:51 03/17/18 18:51 03/17/18 18:51 - Notes Notes: GENERAL: Alert, interacts well. crying upon me entering the room. HEAD: Normocephalic, atraumatic. EYES: Pupils equal, round, and reactive to light. Extraocular movements intact. ENT: Oral mucosa moist, tongue midline. NECK: Full range of motion. Supple. Trachea midline. LUNGS: Clear to auscultation bilaterally, no wheezes, rales, or rhonchi. No respiratory distress. HEART: Regular rate and rhythm. No murmur ABDOMEN: Soft, non-tender. Non-distended. Bowel sounds present in all 4 quadrants. EXTREMITIES: Moves all 4 extremities spontaneously. No edema, normal radial and dorsalis pedis pulses bilaterally. No cyanosis. BACK: no cervical, thoracic, lumbar midline tenderness. No saddle anesthesia, normal distal neurovascular exam. NEUROLOGICAL: Alert and oriented x3. Normal speech. cranial nerves II through XII grossly intact PSYCH: Flat affect, depressed mood. SKIN: Warm, dry, normal turgor. No rashes or lesions noted. (JOSE BRINK) Course - Laboratory Result Diagrams: 03/17/18 19:11 03/17/18 19:11 <JOSE BRINK - Last Filed: 03/18/18 07:12> - Laboratory Result Diagrams: 03/17/18 19:11 03/17/18 19:11 <JAMES SAMUELS - Last Filed: 03/18/18 10:33> - Re-evaluation Re-evalutation: Patient is cleared for psych evaluation at this time. She does have IVC paperwork filled out. Patient has been sleeping comfortably throughout the evening with no issues. One dose of Benadryl was given for her generalized anxiety. 03/18/18 07:10 Pt. care and report given to Tatum Conroy [employer]UNICATION[employer] MAINTAINER awaiting Psych eval Vitals HR 86, BP 122/80. RR 12 SPO2 99 in NAD sleeping. (JOSE BRINK) - Vital Signs Vital signs: Temp Pulse Resp BP Pulse Ox 98.6 F 85 16 116/75 98 03/18/18 09:36 03/18/18 09:36 03/18/18 09:00 03/18/18 09:36 03/18/18 09:36 - Laboratory Laboratory results interpreted by me: 03/17/18 03/17/18 03/17/18 19:11 19:11 19:11 WBC 13.0 H RDW 14.3 H Seg Neutrophils % 80.8 H Absolute Neutrophils 10.5 H AST 49 H Salicylates < 1.0 L Acetaminophen < 10 L Discharge <JOSE BRINK - Last Filed: 03/18/18 07:12> <GALI VELEZ - Last Filed: 03/18/18 10:24> <JAMES SAMUELS - Last Filed: 03/18/18 10:33> - Discharge Clinical Impression: Anxiety Depression Qualifiers: Depression Type: unspecified Qualified Code(s): F32.9 - Major depressive disorder, single episode, unspecified Condition: Stable Disposition: HOME, SELF-CARE Additional Instructions: You have been evaluated both medical and behavioral health teams have been deemed appropriate for discharge. You have been provided prescription for Prozac 20 mg daily; please take as directed. You have provided a local resource list of area providers including mobile crisis contact information. Please follow-up with your outpatient mental health provider of your choice within 3-5 days. DEPRESSION: Your evaluation reveals that you have mental depression. While symptoms may be vague, they often include disturbance of sleep, fatigue, loss of appetite, and general loss of interest in life. While depression may be a side effect of drugs, or a reaction to a major change in your life, many cases have no known cause. If depression is acute, and related to a major loss in your life, you can expect it to clear completely with time. If you have been depressed a long time, are prone to repeated bouts of depression or low mood, or have been thinking of suicide, get help. Depression can be treated with anti-depressant medication and counselling. Long-term depression will often take a few weeks to clear, even with appropriate medication. Follow-up care is important. SUICIDAL IDEATION: Suicidal ideation is a common medical term for thoughts about suicide, which may be as detailed as a formulated plan, without the suicidal act itself. Although most people who undergo suicidal ideation do not commit suicide, some go on to make suicide attempts. The range of suicidal ideation varies greatly from fleeting to detailed planning, role playing, and unsuccessful attempts. While thoughts about suicide are common, most people do not carry out ser ious actions to commit suicide. Based upon your evaluation and discussion with you, we do not believe you are currently at risk to act upon your thoughts of suicide. You have agreed to return to the Emergency Department, at any time, if you feel inclined to act upon your suicidal thoughts. FOLLOW-UP CARE: If you have been referred to a physician for follow-up care, call the physicians office for an appointment as you were instructed or within the next two days. If you experience worsening or a significant change in your symptoms, notify the physician immediately or return to the Emergency Department at any time for re-evaluation. Anxiety The physician feels that some of your health problems are being caused by anxiety. Anxiety affects your health in many ways. Anxiety alone can cause palpitations, sweats, chest pains, abdominal pains, shortness of breath, and headaches. It contributes to ulcer disease, high blood pressure, irritable bowel syndrome, and has been shown to cause flare-ups of many other diseases. Anxiety is not a simple disorder to treat. If the anxiety is due to recent life stresses, you may simply need time to "work through" the changes. If the anxiety is due to an underlying unhappiness with yourself or due to psychiatric disturbance, professional help will be needed. Your physician can refer you for further help if needed. Anti-anxiety medication is occasionally given if the stress is acute or if you are having trouble sleeping. Chronic or frequent use of these medications is not a good idea because the body becomes reliant on it, preventing you from dealing with life's normal stresses. Prescriptions: Fluoxetine HCl [Prozac 20 mg Capsule] 20 mg PO DAILY #14 capsule Referrals: [facility] [Outside] - Follow up as needed
--- NOTE | 2018-03-18 10:33 | PSYCHOLOGICAL NOTE ---
Psych Note - Psych Note Date seen by psych provider: 03/18/18 Time seen by psych provider: 07:00 Psych Note: Reason for Consult: suicidal ideation Patient reports she came to [facility] ED because she has been stressed, cannot concentrate has not been sleeping and cannot focus for the last 2 weeks. She reports she started having thoughts of "why go through life like this." She reports that she has emotions that go up and down and making her feel like she is "losing my mind." She reports of thoughts of people judging her or plotting against her and has an increased difficulty and struggling with her eating disorder. She discloses that she is currently on probation from back in 2014 when she sold methadone to an surgical endoscopist. She discloses that she moved from the [facility] to get away from that and currently has her own home and job; "I done all on my own." She reports that she does not have an outpatient mental health provider currently and takes [place] Sal's wort to assist with her moods. Patient is alert and orientated to person, place, time and circumstance. Mood is euthymic with congruent affect. Patient endorses passive suicidal ideation i.e. no plans means or intent denies homicidal ideation. Delusions are absent behaviors congruent with an intact reality based presentation i.e. organized and linear thought process. Eye contact is well-maintained. Conversational speech was within normal rate, tone and prosody. Intellectual abilities appear to be within the average range. Attention and concentration are fair. Insight, judgment, impulse control are fair. Medication recommendations per [facility]'s contracted psychiatrist Dr. Peng CAICEDO are as follows Prozac 20 mg daily Diagnosis 311 (F32.9) unspecified depressive disorder per history provided by patient 300.00 (F 41.9) unspecified anxiety disorder per history provided by patient Eating disorder; unspecified per history provided by patient Impression\\plan: Patient is cleared from acute psychiatric services. Patient discloses passive suicidal ideation i.e. no plans means or intent. She reports increase in both obsessive thoughts, compulsive behaviors, and anxiety. Patient reports wanting assistance with her mental health. Medication recommendations have been provided. Patient has been provided a local resource list of mental health providers in addition to mobile crisis contact information. Dr. Elizabeth was consulted and the care management this patient; attending physicians in agreement with recommendations and disposition.
[2018-03-18 11:07] VITALS: BP 145/87
== END 2018-03-18 11:19 | disposition home or self-care (01) ==
LOC: ER 18:37
DX: F41.9 Anxiety disorder, unspecified (principal); F32.9 Major depressive disorder, single episode, unspecified; R07.89 Other chest pain; Z87.442 Personal history of urinary calculi; Z90.49 Acquired absence of other specified parts of digestive tract; Z88.0 Allergy status to penicillin
CPT/HCPCS: 36415; 71045; 80053; 80307; 81001; 81025; 84484; 85025; 93005; 93010; 99285

== ENCOUNTER 2018-03-30 19:11 | Emergency (ER) | payer SELFPAY ==
--- NOTE | 2018-03-30 20:36 | EKG REPORT ---
SEVERITY:- OTHERWISE NORMAL ECG - SINUS RHYTHM BORDERLINE RIGHT AXIS DEVIATION : Confirmed by: Nishant Monroe MD 30-Mar-2018 20:36:24
--- NOTE | 2018-03-30 20:39 | ER Document Report ---
ED Medical Screen (RME) - General Chief Complaint: Chest Pain Stated Complaint: CHEST TIGHTNESS Time Seen by Provider: 03/30/18 20:34 Notes: RAPID MEDICAL EVALUATION DISCLOSURE I have seen this patient as part of a Rapid Medical Evaluation and, if applicable, placed any initially appropriate orders. The patient will be seen and fully evaluated, including a full history and physical exam, by a provider (in Main ED or Fast Track) when a room becomes available. 32-year-old female here with complaints of midsternal chest tightness shortness of breath lightheadedness diaphoresis that started approximately 6 hours ago. She was at the gym working out on a weightlifting machine when symptoms started. She tried a new pre-workout energy mix tonight for the first time and believes this may have been the cause of her symptoms. Furthermore, she had 2 doses of pre-workout energy mix today and she states "I think I overdid it". She also wonders if her symptoms may be due to anxiety. She has not tried anything for the symptoms. She has no previous history of NC but has a family history of NC. She denies hypertension diabetes hyperlipidemia. She quit smoking cigarettes 2 months ago. Her last cocaine use was also several months ago. Denies previous history of PE DVT or family history of same. Denies recent prolonged immobilization. Denies estrogen use. EXAM CTAB RRR TRAVEL OUTSIDE OF THE [place] IN LAST 30 DAYS: No - Related Data Allergies/Adverse Reactions: penicillin V [Penicillin V] Allergy (Verified 03/17/18 18:38) Past Medical History - Social History Chew tobacco use (# tins/day): No Frequency of alcohol use: Occasional Drug Abuse: None Family history: None Renal/ Medical History: Reports: Hx Kidney Stones. Denies: Hx Peritoneal Dialysis Psychiatric Medical History: Reports: Hx Depression Past Surgical History: Reports: Hx Cholecystectomy, Hx Kidney (Renal Surgery) - stent placed - Immunizations Hx Diphtheria, Pertussis, Tetanus Vaccination: Yes Physical Exam - Vital signs Vitals: Temp Pulse Resp BP Pulse Ox 98.3 F 64 16 123/91 H 100 03/30/18 19:26 03/30/18 19:26 03/30/18 19:26 03/30/18 19:26 03/30/18 19:26 Course - Vital Signs Vital signs: Temp Pulse Resp BP Pulse Ox 98.3 F 64 16 123/91 H 100 03/30/18 19:26 03/30/18 19:26 03/30/18 19:26 03/30/18 19:26 03/30/18 19:26
--- NOTE | 2018-03-30 21:10 | RADIOLOGY REPORT (SQ) ---
EXAM DESCRIPTION: XR CHEST 2 VIEWS COMPLETED DATE/TME: 03/30/2018 20:34 CLINICAL HISTORY: 32 years, Female, CP SOB lightheaded COMPARISON: 03/17/2018 chest NUMBER OF VIEWS: 2 TECHNIQUE: Frontal and lateral views of the chest LIMITATIONS: None. FINDINGS: Heart size is normal. Lungs are clear. No pneumothorax IMPRESSION: Negative chest copyright 2010 [employer]- All Rights Reserved
[2018-03-30 21:34] LABS: ABSOLUTE EOSINOPHILS # (AUTO) 0.1 10^3/uL (0.0-0.6); ABSOLUTE MONOCYTES (AUTO) 0.5 10^3/uL (0.1-1.4); ABSOLUTE NEUT (AUTO) 4.1 10^3/uL (1.7-8.2); BASOPHILS % (AUTO) 0.4 % (0-2); EOSINOPHILS % (AUTO) 0.9 % (0-6); HEMATOCRIT 39.5 % (36.0-47.0); HEMOGLOBIN 13.7 g/dL (12.0-15.5); LYMPHOCYTES % (AUTO) 29.9 % (13-45); MEAN CORPUSCULAR HEMOGLOBIN 32.5 pg (27.0-33.4); MEAN CORPUSCULAR HGB CONC 34.7 g/dL (32.0-36.0); MEAN CORPUSCULAR VOLUME 94 fl (80-97); MONOCYTES % (AUTO) 7.4 % (3-13); PLATELET COUNT 263 10^3/uL (150-450); RED BLOOD COUNT 4.22 10^6/uL (3.72-5.28); RED CELL DISTRIBUTION WIDTH 13.5 % (11.5-14.0); SEGMENTED NEUTROPHILS % (AUTO) 61.4 % (42-78); TOTAL CELLS COUNTED % (AUTO) 100 %; WHITE BLOOD COUNT 6.7 10^3/uL (4.0-10.5)
[2018-03-30 22:09] LABS: ALANINE AMINOTRANSFERASE 30 U/L (9-52); ALBUMIN 4.5 g/dL (3.5-5.0); ALKALINE PHOSPHATASE 75 U/L (38-126); ANION GAP 8 (5-19); ASPARTATE AMINO TRANSFERASE 40 U/L (14-36); BILIRUBIN,DIRECT 0.2 mg/dL (0.0-0.4); BILIRUBIN,TOTAL 0.2 mg/dL (0.2-1.3); BLOOD UREA NITROGEN 15 mg/dL (7-20); CALCIUM 9.7 mg/dL (8.4-10.2); CARBON DIOXIDE 27 mmol/L (22-30); CHLORIDE 103 mmol/L (98-107); GLUCOSE 79 mg/dL (75-110); POTASSIUM 3.9 mmol/L (3.6-5.0); SODIUM 137.9 mmol/L (137-145); TOTAL PROTEIN 7.4 g/dL (6.3-8.2)
--- NOTE | 2018-03-30 22:53 | ER Document Report ---
ED General - General Chief Complaint: Chest Pain Stated Complaint: CHEST TIGHTNESS Time Seen by Provider: 03/30/18 20:34 Mode of Arrival: Ambulatory Information source: Patient Notes: 32-year-old female presents emergency department with complaints of chest tightness and shortness of breath that started about 6pm. Patient states that she was in the gym working out when her symptoms started. Patient states that she tried a new pre-workout energy mix tonight and she thinks that this caused her symptoms. Patient states that she does have a history of anxiety and her symptoms feel similar to previous anxiety attacks. She is not taking any medication prior to arrival. She denies a history of hypertension, diabetes, hyperlipidemia, coronary artery disease. She states that there is a family history of coronary artery disease. She states that she stopped smoking 2 months ago. She denies a history of DVT or PE, recent surgery, recent travel, calf pain, calf swelling, hormone use, history of malignancy. TRAVEL OUTSIDE OF THE [place] IN LAST 30 DAYS: No - HPI Onset: Other - 6pm Onset/Duration: Gradual Quality of pain: Pressure Severity: Mild Pain Level: Denies Exacerbated by: Denies Relieved by: Denies Similar symptoms previously: Yes Recently seen / treated by doctor: Yes - Related Data Allergies/Adverse Reactions: penicillin V [Penicillin V] Allergy (Verified 03/17/18 18:38) Past Medical History - General Information source: Patient - Social History Smoking Status: Current Every Day Smoker Chew tobacco use (# tins/day): No Frequency of alcohol use: Occasional Drug Abuse: None Family History: Reviewed & Not Pertinent Patient has suicidal ideation: No Patient has homicidal ideation: No Renal/ Medical History: Reports: Hx Kidney Stones. Denies: Hx Peritoneal Dialysis Psychiatric Medical History: Reports: Hx Depression Past Surgical History: Reports: Hx Cholecystectomy, Hx Kidney (Renal Surgery) - stent placed - Immunizations Hx Diphtheria, Pertussis, Tetanus Vaccination: Yes Review of Systems - Review of Systems Constitutional: No symptoms reported EENT: No symptoms reported Cardiovascular: Chest pain Respiratory: Short of breath Gastrointestinal: No symptoms reported Genitourinary: No symptoms reported Female Genitourinary: No symptoms reported Musculoskeletal: No symptoms reported Skin: No symptoms reported Hematologic/Lymphatic: No symptoms reported Neurological/Psychological: No symptoms reported -: Yes All other systems reviewed and negative Physical Exam - Vital signs Vitals: Temp Pulse Resp BP Pulse Ox 98.3 F 64 16 123/91 H 100 03/30/18 19:26 03/30/18 19:26 03/30/18 19:26 03/30/18 19:26 03/30/18 19:26 - Notes Notes: PHYSICAL EXAMINATION: GENERAL: Well-appearing, well-nourished and in no acute distress. HEAD: Atraumatic, normocephalic. EYES: Pupils equal round and reactive to light, extraocular movements intact, conjunctiva are normal. ENT: Nares patent, oropharynx clear without exudates. Moist mucous membranes. NECK: Normal range of motion, supple without lymphadenopathy LUNGS: Breath sounds clear to auscultation bilaterally and equal. No wheezes rales or rhonchi. HEART: Regular rate and rhythm without murmurs ABDOMEN: Soft, nontender, nondistended abdomen. No guarding, no rebound. No masses appreciated. Female : deferred Musculoskeletal: Normal range of motion, no pitting or edema. No cyanosis. NEUROLOGICAL: Cranial nerves grossly intact. Normal speech, normal gait. Normal sensory, motor exams PSYCH: Normal mood, normal affect. SKIN: Warm, Dry, normal turgor, no rashes or lesions noted. Course - Re-evaluation Re-evalutation: 03/30/18 22:53 EKG: Ventricular rate 59, NE interval 160, cures duration 92, QTc 444, normal sinus rhythm. 03/31/18 01:09 Labs and imaging obtained. Troponin was negative x2. D-dimer is negative. Chest x-ray does not show an acute process. On reevaluation, patient states that she is feeling much better. Her symptoms have resolved. Patient feels c omfortable with discharge home and following up with her primary care physician this week. - Vital Signs Vital signs: Temp Pulse Resp BP Pulse Ox 98.1 F 59 L 18 138/84 H 99 03/30/18 23:03 03/30/18 23:03 03/30/18 23:03 03/30/18 23:03 03/30/18 23:03 - Laboratory Result Diagrams: 03/30/18 21:23 03/30/18 21:23 Laboratory results interpreted by me: 03/30/18 21:23 AST 40 H Discharge - Discharge Clinical Impression: Chest pain Qualifiers: Chest pain type: unspecified Qualified Code(s): R07.9 - Chest pain, unspecified Condition: Good Disposition: HOME, SELF-CARE Instructions: Chest Pain of Unclear Cause ([facility]) Referrals: NAGI HOWARD MD [ACTIVE STAFF] - Follow up as needed
[2018-03-30] MEDS ORDERED: LORAZEPAM INJ 2 MG/1 ML VIAL IV ONE (23:16)
[2018-03-30 23:37] LABS: APPEARANCE,URINE CLEAR; BILIRUBIN,URINE NEGATIVE (NEGATIVE); COLOR,URINE STRAW; GLUCOSE, URINE NEGATIVE (NEGATIVE); KETONES,URINE NEGATIVE (NEGATIVE); LEUKOCYTE ESTERASE,URINE NEGATIVE (NEGATIVE); NITRITE,URINE NEGATIVE (NEGATIVE); PROTEIN,URINE NEGATIVE (NEGATIVE); URINE SPECIFIC GRAVITY 1.005; UROBILINOGEN,URINE NEGATIVE mg/dL (<2.0)
[2018-03-30 23:52] LABS: URINE AMPHETAMINES SCREEN NEGATIVE; URINE BARBITURATES SCREEN NEGATIVE; URINE BENZODIAZEPINES SCREEN NEGATIVE; URINE MARIJUANA (THC) SCREEN NEGATIVE; URINE METHADONE SCREEN NEGATIVE; URINE PHENCYCLIDINE SCREEN NEGATIVE
[2018-03-31 00:02] LABS: URINE COCAINE SCREEN NEGATIVE
[2018-03-31 01:37] VITALS: BP 120/84
== END 2018-03-31 01:37 | disposition home or self-care (01) ==
LOC: ER 19:11
DX: R07.9 Chest pain, unspecified (principal); R06.02 Shortness of breath; F41.9 Anxiety disorder, unspecified; F17.200 Nicotine dependence, unspecified, uncomplicated
CPT/HCPCS: 93005; 99285; 96374; 36415; 85025; 81025; 80053; 81001; 84484; 80307; 85379; 71046; 93010; J2060

== ENCOUNTER 2018-07-21 18:24 | Emergency (ER) | payer SELFPAY ==
[2018-07-21 18:35] VITALS: BP 104/62
== END 2018-07-21 21:32 | disposition left against medical advice (07) ==
LOC: ER 18:24
DX: Z53.21 Procedure and treatment not carried out due to patient leaving prior to being seen by health care provider (principal)

== ENCOUNTER 2018-08-15 18:51 | Emergency (ER) | payer SELFPAY ==
--- NOTE | 2018-08-15 19:18 | ER Document Report ---
ED Medical Screen (RME) - General Chief Complaint: Shortness Of Breath Stated Complaint: SHORTNESS OF BREATH Time Seen by Provider: 08/15/18 19:17 Mode of Arrival: Ambulatory Information source: Patient Notes: 32-year-old female presented to ED for chest pain yesterday and today. She states she has had it in the past also but they did not find a window was. She states she was at the gym yesterday and today when the pain started. She states she has a history of kidney stones gallbladder removal and depression. She smokes half pack does not drink does smoke pot and takes kratom which is a stimulant that she uses for energy at work and to work out. Patient is alert oriented respirations regular and unlabored speaking in full sentences and walks with a even steady gait. I have greeted and performed a rapid initial assessment of this patient. A comprehensive ED assessment and evaluation of the patient, analysis of test results and completion of medical decision making process will be conducted by an additional ED providers. Dictation of this chart was performed using voice recognition software; therefore, there may be some unintended grammatical errors. TRAVEL OUTSIDE OF THE [place] IN LAST 30 DAYS: No - Related Data Allergies/Adverse Reactions: penicillin V [Penicillin V] Allergy (Verified 08/15/18 18:52) Past Medical History - Social History Family history: None Renal/ Medical History: Reports: Hx Kidney Stones. Denies: Hx Peritoneal Dialysis Psychiatric Medical History: Reports: Hx Depression Past Surgical History: Reports: Hx Cholecystectomy, Hx Kidney (Renal Surgery) - stent placed - Immunizations Hx Diphtheria, Pertussis, Tetanus Vaccination: Yes Physical Exam - Vital signs Vitals: Temp Pulse Resp BP Pulse Ox 98.7 F 69 18 131/88 H 97 08/15/18 18:59 08/15/18 18:59 08/15/18 18:59 08/15/18 18:59 08/15/18 18:59 Course - Vital Signs Vital signs: Temp Pulse Resp BP Pulse Ox 98.7 F 69 18 131/88 H 97 08/15/18 18:59 08/15/18 18:59 08/15/18 18:59 08/15/18 18:59 08/15/18 18:59
--- NOTE | 2018-08-15 19:49 | EKG REPORT ---
SEVERITY:- OTHERWISE NORMAL ECG - SINUS RHYTHM BORDERLINE RIGHT AXIS DEVIATION : Confirmed by: Cleopatra Gaspar 15-Aug-2018 19:48:29
--- NOTE | 2018-08-15 19:50 | RADIOLOGY REPORT (SQ) ---
EXAM DESCRIPTION: CHEST 2 VIEWS COMPLETED DATE/TIME: 08/15/2018 7:37 pm REASON FOR STUDY: chest pain COMPARISON: 03/30/2018 EXAM PARAMETERS: NUMBER OF VIEWS: two views TECHNIQUE: Digital Frontal and Lateral radiographic views of the chest acquired. RADIATION DOSE: NA LIMITATIONS: none FINDINGS: LUNGS AND PLEURA: No opacities, masses or pneumothorax. No pleural effusion. MEDIASTINUM AND HILAR STRUCTURES: No masses or contour abnormalities. HEART AND VASCULAR STRUCTURES: Heart normal size. No evidence for failure. BONES: No acute findings. HARDWARE: None in the chest. OTHER: No other significant finding. IMPRESSION: No acute abnormality of the lungs. TECHNICAL DOCUMENTATION: JOB ID: [id number] [employer]- All Rights Reserved Reading location - IP/workstation name: [email or web address]
[2018-08-15 19:59] LABS: ABSOLUTE EOSINOPHILS # (AUTO) 0.1 10^3/uL (0.0-0.6); ABSOLUTE MONOCYTES (AUTO) 0.3 10^3/uL (0.1-1.4); ABSOLUTE NEUT (AUTO) 2.8 10^3/uL (1.7-8.2); BASOPHILS % (AUTO) 0.3 % (0-2); EOSINOPHILS % (AUTO) 1.1 % (0-6); HEMATOCRIT 38.2 % (36.0-47.0); HEMOGLOBIN 12.8 g/dL (12.0-15.5); LYMPHOCYTES % (AUTO) 38.8 % (13-45); MEAN CORPUSCULAR HEMOGLOBIN 30.7 pg (27.0-33.4); MEAN CORPUSCULAR HGB CONC 33.5 g/dL (32.0-36.0); MEAN CORPUSCULAR VOLUME 92 fl (80-97); MONOCYTES % (AUTO) 5.9 % (3-13); PLATELET COUNT 194 10^3/uL (150-450); RED BLOOD COUNT 4.17 10^6/uL (3.72-5.28); RED CELL DISTRIBUTION WIDTH 13.6 % (11.5-14.0); SEGMENTED NEUTROPHILS % (AUTO) 53.9 % (42-78); TOTAL CELLS COUNTED % (AUTO) 100 %; WHITE BLOOD COUNT 5.2 10^3/uL (4.0-10.5)
[2018-08-15 20:31] LABS: ALANINE AMINOTRANSFERASE 21 U/L (9-52); ALBUMIN 4.7 g/dL (3.5-5.0); ALKALINE PHOSPHATASE 65 U/L (38-126); ANION GAP 14 (5-19); ASPARTATE AMINO TRANSFERASE 26 U/L (14-36); BILIRUBIN,DIRECT 0.3 mg/dL (0.0-0.4); BILIRUBIN,TOTAL 0.5 mg/dL (0.2-1.3); BLOOD UREA NITROGEN 22 mg/dL (7-20); CALCIUM 9.4 mg/dL (8.4-10.2); CARBON DIOXIDE 27 mmol/L (22-30); CHLORIDE 100 mmol/L (98-107); GLUCOSE 90 mg/dL (75-110); POTASSIUM 4.1 mmol/L (3.6-5.0); SODIUM 140.6 mmol/L (137-145); TOTAL PROTEIN 7.7 g/dL (6.3-8.2)
[2018-08-15 20:42] LABS: CREATINE KINASE MB 2.99 ng/mL (<4.55)
[2018-08-15 20:47] LABS: TROPONIN I < 0.012 ng/mL
--- NOTE | 2018-08-15 22:28 | ER Document Report ---
ED General - General Chief Complaint: Shortness Of Breath Stated Complaint: SHORTNESS OF BREATH Time Seen by Provider: 08/15/18 19:17 Mode of Arrival: Ambulatory TRAVEL OUTSIDE OF THE [place] IN LAST 30 DAYS: No - HPI Notes: Patient is a 32-year-old female who presents to the emergency department for multiple complaints to include chest tightness, dizziness, bilateral tingling in her hands and intermittent palpitations that started while she was at the gym around 5 PM this afternoon. Patient states she does take [id number] Kratom the crushed powder form. Patient states that she has been taking this for 2 years for increased energy. She is taking a total of 4 doses today. Patient states she took kratom caffeine pipe crew foreman and vitamin B12 prior to her her gym workout. Patient states that since leaving the gym and coming to the emergency department her symptoms have improved and are now gone. Patient denies current chest pain, shortness of breath, or dizziness. Patient states she takes the kratom to improve her energy. Patient does report occasional marijuana use but denies alcohol use. States this similar episode happened yesterday while she was at the gym and at that time she had taken a dose of kratom as well. - Related Data Allergies/Adverse Reactions: penicillin V [Penicillin V] Allergy (Verified 08/15/18 18:52) Past Medical History - General Information source: Patient - Social History Smoking Status: Current Every Day Smoker Cigarette use (# per day): Yes Chew tobacco use (# tins/day): Yes - 2-5 cigarettes per day Smoking Education Provided: Yes Frequency of alcohol use: None Drug Abuse: Marijuana Lives with: Alone Family History: Reviewed & Not Pertinent Patient has suicidal ideation: No Patient has homicidal ideation: No - Medical History Medical History: Negative - Past Medical History Cardiac Medical History: Reports: None Pulmonary Medical History: Reports: None EENT Medical History: Reports: None Neurological Medical History: Reports: None Endocrine Medical History: Reports: None Renal/ Medical History: Reports: Hx Kidney Stones. Denies: Hx Peritoneal Dialysis Malignancy Medical History: Reports: None GI Medical History: Reports: None Musculoskeletal Medical History: Reports None Skin Medical History: Reports None Psychiatric Medical History: Reports: None, Hx Depression Traumatic Medical History: Reports: None Infectious Medical History: Reports: None Past Surgical History: Reports: Hx Cholecystectomy, Hx Kidney (Renal Surgery) - stent placed - Immunizations Hx Diphtheria, Pertussis, Tetanus Vaccination: Yes Review of Systems - Review of Systems Constitutional: No symptoms reported EENT: No symptoms reported Cardiovascular: See HPI Respiratory: See HPI Gastrointestinal: No symptoms reported Genitourinary: No symptoms reported Female Genitourinary: No symptoms reported Musculoskeletal: No symptoms reported Skin: No symptoms reported Hematologic/Lymphatic: No symptoms reported Neurological/Psychological: No symptoms reported Physical Exam - Vital signs Vitals: Temp Pulse Resp BP Pulse Ox 98.7 F 69 18 131/88 H 97 08/15/18 18:59 08/15/18 18:59 08/15/18 18:59 08/15/18 18:59 08/15/18 18:59 Interpretation: Normal - Notes Notes: GENERAL: Well-appearing, well-nourished and in no acute distress. HEAD: Atraumatic, normocephalic. EYES: Pupils equal round and reactive to light, extraocular movements intact, sclera anicteric, conjunctiva are normal. ENT: TMs normal, nares patent, oropharynx clear without exudates. Moist mucous membranes. NECK: Normal range of motion, supple without lymphadenopathy or JVD. LUNGS: Breath sounds clear to auscultation bilaterally and equal. No wheezes rales or rhonchi. HEART: Regular rate and rhythm without murmurs, rubs or gallops. No reproducible chest pain. ABDOMEN: Soft, nontender, normoactive bowel sounds. No guarding, no rebound. No masses appreciated. EXTREMITIES: Normal range of motion, no pitting or edema. No clubbing or cyanosis. NEUROLOGICAL: Cranial nerves II through XII grossly intact. Normal speech, normal gait. PSYCH: Normal mood, normal affect. SKIN: Warm, Dry, normal turgor, no rashes or lesions noted. Course - Re-evaluation Re-evalutation: 08/15/18 22:45 Patient is PERC negative. During initial assessment patient reports that her pain is completely gone and she feels her normal. Her EKG, chest x-ray, blood work were all unremarkable. Her troponin was also negative. Informed patient to limit her use of kratom as this can be addicting, also educated to avoid stackers and other over the counter stimulants as this could be the cause of her symptoms. Educated patient on smoking cessation. - Vital Signs Vital signs: Temp Pulse Resp BP Pulse Ox 98.7 F 69 10 L 120/86 H 99 08/15/18 18:59 08/15/18 18:59 08/15/18 23:01 08/15/18 23:01 08/15/18 23:01 - Laboratory Result Diagrams: 08/15/18 19:19 08/15/18 19:48 Laboratory results interpreted by me: 08/15/18 19:48 BUN 22 H - Diagnostic Test Radiology reviewed: Reports reviewed - EKG Interpretation by Me Additional EKG results interpreted by me: 08/16/18 Patient's EKG showed a sinus rhythm with a rate of 62, there is a borderline right axis deviation, no ST segment changes. Discharge - Discharge Clinical Impression: Chest pain of unknown etiology, Dizziness, nonspecific, Tingling of upper extremity Condition: Stable Disposition: HOME, SELF-CARE Additional Instructions: You were seen in the emergency department for chest tightness. Your cardiac work-up including your chest x-ray was negative. It is unsure what is causing your symptoms but it could be related to the Kratom and the pipe crew foreman that you took prior to the gym. Both of these medications are stimulants that can cause chest tightness as well as the other symptoms that you were having. Please refrain from [id number] stimulants as well as cigarette smoking. Please return to the emergency department for any worsening chest pain, palpitations, shortness of breath, or any other concerning signs or symptoms. Chest Pain of Unclear Cause The exact cause of your chest pain isn't clear. Fortunately, there is no evidence of a dangerous medical condition. Further testing may be required to find the source of the pain. Most often, we find that this pain is coming from the chest wall -- the muscles or rib joints in the chest. But chest pain can come from the lung and lung lining, the esophagus, the heart valves or heart lining, and even the stomach or gallbladder. Rest. Eat lightly until the pain is gone. We may prescribe medicine for pain and inflammation. You should call the physician immediately if the pain radiates to the shoulder, jaw or arms; if you start to run a fever or develop a cough; or if you develop shortness of breath, or other new or alarming symptoms.
[2018-08-15 23:20] VITALS: BP 120/86
== END 2018-08-15 23:26 | disposition home or self-care (01) ==
LOC: ER 18:51
DX: R07.9 Chest pain, unspecified (principal); R42 Dizziness and giddiness; R20.0 Anesthesia of skin; R06.02 Shortness of breath; R00.2 Palpitations; Z79.899 Other long term (current) drug therapy; F12.90 Cannabis use, unspecified, uncomplicated; F17.210 Nicotine dependence, cigarettes, uncomplicated
CPT/HCPCS: 36415; 71046; 80053; 82553; 84484; 85025; 93005; 93010; 99285

== ENCOUNTER 2019-03-11 21:06 | Emergency (ER) | payer SELFPAY ==
[2019-03-11 21:16] VITALS: BP 133/79
--- NOTE | 2019-03-11 23:55 | RADIOLOGY REPORT (SQ) ---
EXAM DESCRIPTION: CT head without contrast CLINICAL HISTORY: 33 years Female, head injury, vomiting COMPARISON: None. TECHNIQUE: Axial images of the head were performed without the use of intravenous contrast, with sagittal and coronal reformatted images. This exam was performed according to our departmental dose-optimization program which includes use of Automated Exposure Control, adjustment of the mA and/or kV according to patient size and/or use of iterative reconstruction technique. FINDINGS: No skull fracture. No intracranial bleed. No evidence of acute infarct. No evidence of mass or hydrocephalus. There is left maxillary sinus disease. IMPRESSION: No skull fracture. No intracranial bleed.
== END 2019-03-12 00:50 | disposition left against medical advice (07) ==
LOC: ER 21:06
DX: Z53.21 Procedure and treatment not carried out due to patient leaving prior to being seen by health care provider (principal)
CPT/HCPCS: 70450